=== PATIENT | male | born 1965 | race Caucasian/White ===

== ENCOUNTER 2016-02-28 09:34 | Inpatient (IN) | payer OTHER ==
--- NOTE | 2016-02-28 09:58 | PDOC ---
[id number] have performed the following: I have examined & evaluated the patient, The case was reviewed & discussed with the resident, I agree w/resident 's findings & plan - HPI HPI: 03/04/16 08:42 see below - Physicial Exam PE: 03/04/16 08:42 see below - Medical Decision Making 02/28/16 10:27 47y M no pmhx presents with abd pain, pt notes pain started gradually on saturday , in the LLQ radiating to the groin - intermittent, worsend significantly this morning associated with chills - no associated n/v, fever, dysuria, hematuria. pt does endorse diarrhea x 2, and pt has been passing gas, whichs eems to improve his pain. on exam pts vital snoted for mild hypotension. abd reveals diffuse tenderness with volutnary guarding. suspect psosible kidney stone vs diverticulitis 02/28/16 14:12 ct c/w diverticulitis admitted to dr. monroe service, and dr. solomon was consulted (surgery) stable for tele Case discussed in detail with admitting physician including history, physical exam and ancillary studies. Admitting physician has assumed care for the patient, will follow all pending diagnostics and will complete the evaluation and treatment.
[2016-02-28] MEDS ORDERED: SODIUM CHLORIDE 1,000 ML IV ONE ×2 (10:11→13:54)
[2016-02-28] MEDS ORDERED: KETOROLAC TROMETHAMINE 30 MG/1 ML VIAL IVPUSH ONE (10:22)
[2016-02-28] MEDS ORDERED: KETOROLAC TROMETHAMINE 30 MG/1 ML VIAL ONE (10:23)
--- NOTE | 2016-02-28 10:29 | PDOC ---
History of Present Illness <Gustavo Dhillon - Last Filed: 02/28/16 11:50> - General History Source: Patient Exam Limitations: No Limitations - History of Present Illness Travel History: No Initial Comments: 02/28/16 10:25 Patient is a 47 year old male with no significant PMH who presents to ED with severe abdominal pain since this AM. He started to feel a diffuse uncomfortable sensation in his abdomen starting on saturday. Discomfort was mild and accompanied by 2 episodes of diarrhea. This morning the patient had a severe increase in pain, located mainly in his LLQ, described as sharp and radiating to his testicles & perineum. He also developed chills, cold sweats and a bout of dizziness. He denies any sick contacts, [place], CP, SOB or visual changes. He had a colonoscopy 3 years ago which showed a minimal amount of diverticula. <Hilario Hutchins - Last Filed: 02/28/16 14:07> - General Chief Complaint: Pain Stated Complaint: ABD PAIN Time Seen by Provider: 02/28/16 09:48 Past History <Gustavo Dhillon - Last Filed: 02/28/16 11:50> - Travel Traveled outside of the country in the last 30 days: No Close contact w/someone who was outside of country & ill: No - Past Medical History Other medical history: denies Comment:: No PMH - Surgical History Comments:: No PSH - Family Disease History Family Disease History: Other: Father (Parkinsons) - Immunization History Immunization Up to Date: Yes (no flu) - Psycho/Social/Smoking Cessation Hx Anxiety: No Suicidal Ideation: No Smoking Status: Yes Smoking History: Current every day smoker Have you smoked in the past 12 months: Yes Number of Cigarettes Smoked Daily: 10 Information on smoking cessation initiated: No Hx Alcohol Use: No Drug/Substance Use Hx: No Substance Use Type: None <Hilario Hutchins - Last Filed: 02/28/16 14:07> - Past Medical History Allergies/Adverse Reactions: Allergies Allergy/AdvReac Type Severity Reaction Status Date / Time No Known Allergies Allergy Verified 02/28/16 09:38 Home Medications: Ambulatory Orders NK [No Known Home Medication] 02/28/16 Abd/GI Specific PMHX - Complaint Specific PMHX Comments:: Diverticula noted on colonoscopy 3 years ago. <Hilario Hutchins - Last Filed: 02/28/16 14:07> Review of Systems - Review of Systems Able to Perform ROS?: Yes Is the patient limited Nepali proficient: No Constitutional: Yes: Chills ABD/GI: Yes: Diarrhea, Other (abdominal pain) All Other Systems: Reviewed and Negative <CuongHilario vann - Last Filed: 02/28/16 14:07> *Physical Exam - Vital Signs Last Vital Signs Temp Pulse Resp BP Pulse Ox 98.1 F 92 H 20 104/53 98 02/28/16 09:39 02/28/16 10:29 02/28/16 10:29 02/28/16 10:29 02/28/16 10:29 <Gustavo Dhillon - Last Filed: 02/28/16 11:50> - Vital Signs Last Vital Signs Temp Pulse Resp BP Pulse Ox 98.1 F 82 20 96/59 100 02/28/16 09:39 02/28/16 09:39 02/28/16 09:39 02/28/16 09:39 02/28/16 09:39 - Physical Exam General Appearance: Yes: Appropriately Dressed, Apparent Distress HEENT: positive: EOMI, KAILA, Normal ENT Inspection Neck: positive: Trachea midline, Normal Thyroid, Supple Respiratory/Chest: positive: Lungs Clear, Normal Breath Sounds Cardiovascular: positive: Regular Rhythm, Regular Rate, S1, S2 Gastrointestinal/Abdominal: positive: Normal Bowel Sounds, Tender (LLQ WITH REBOUND TENDERNESS), Guarding Male Genitalia: positive: normal genitalia Musculoskeletal: positive: Normal Inspection Extremity: positive: Normal Inspection, Normal Range of Motion Integumentary: positive: Normal Color, Dry, Warm Neurologic: positive: Fully Oriented, Alert, Normal Mood/Affect, Normal Response , Motor Strength 5/5 <Cuong,Hilario - Last Filed: 02/28/16 14:07> Heart Score/ECG Review - ECG Impressions Comment:: 02/28/16 11:50 Twelve-lead EKG was performed and reviewed by me. There is normal sinus rhythm with a normal rate. Rate of 92 The axis is normal. The intervals are normal. There is normal R wave progression There are no ST or T wave abnormalities. Impression: Normal twelve-lead EKG <Gustavo Dhillon - Last Filed: 02/28/16 11:50> #1 EKG: NSR <Hilario Hucthins - Last Filed: 02/28/16 14:07> ED Treatment Course - LABORATORY CBC & Chemistry Diagram: 02/28/16 10:14 02/28/16 10:14 - ADDITIONAL ORDERS Additional order review: Laboratory Results 02/28/16 02/28/16 02/28/16 10:14 10:14 10:14 Sodium Potassium Chloride Carbon Dioxide Anion Gap BUN Creatinine Creat Clearance w eGFR Random Glucose Lactic Acid 1.172 Calcium Total Bilirubin AST ALT Alkaline Phosphatase Total Protein Albumin Lipase 136 Urine Color Chen Urine Appearance Slcloudy Urine pH 5.0 Ur Specific [place] 1.033 Urine Protein 2+ H Urine Glucose (UA) Negative Urine Ketones Trace H Urine Blood Negative Urine Nitrite Negative Urine Bilirubin 2.0 Urine Urobilinogen 4.0 e.u/dl Ur Leukocyte Esterase Negative Urine RBC 2 Urine WBC 3 Hyaline Casts 5 Urine Mucus Many 02/28/16 10:14 Sodium 139 Potassium 4.4 Chloride 103 Carbon Dioxide 30 Anion Gap 6 L BUN 19 H Creatinine 0.9 Creat Clearance w eGFR > 60 Random Glucose 157 H Lactic Acid Calcium 9.5 Total Bilirubin 0.5 AST 7 L ALT 17 Alkaline Phosphatase 60 Total Protein 7.2 Albumin 4.0 Lipase Urine Color Urine Appearance Urine pH Ur Specific [place] Urine Protein Urine Glucose (UA) Urine Ketones Urine Blood Urine Nitrite Urine Bilirubin Urine Urobilinogen Ur Leukocyte Esterase Urine RBC Urine WBC Hyaline Casts Urine Mucus 02/28/16 10:14 RBC 4.55 MCV 95.3 MCHC 33.8 RDW 12.3 MPV 7.6 Neutrophils % 87.9 H Lymphocytes % 7.5 L Monocytes % 3.7 L Eosinophils % 0.7 Basophils % 0.2 - Medications Given in the ED: ED Medications Discontinued Medications Generic Name Dose Route Start Last Admin Trade Name Freq PRN Reason Stop Dose Admin Sodium Chloride 1,000 mls @ 1,000 mls/hr 02/28/16 10:11 02/28/16 10:15 Normal Saline - IV 02/28/16 11:10 1,000 mls/hr .Q1H ONE Administration Ketorolac Tromethamine 30 mg 02/28/16 10:22 02/28/16 10:26 Toradol Injection - IVPUSH 02/28/16 10:23 30 mg ONCE ONE Administration <Jacquie,Gustavo - Last Filed: 02/28/16 11:50> - LABORATORY CBC & Chemistry Diagram: 02/28/16 10:14 02/28/16 10:14 - ADDITIONAL ORDERS Additional order review: 02/28/16 10:35 Ordered CBC, CMP, Lipase, Lactic Acid, UA. Sent blood cultures as well. 1L IVF given with Toradol for pain management. Will likely need abdominal imaging, awaiting lab results to confirm. 02/28/16 11:25 Pain much more tolerable after Toradol given. BP improved after IVF given. Mild leukocytosis. Abdomen & Pelvis CT w/ IV Contrast ordered. 02/28/16 13:49 Abdomen & Pelvis CT shows : Multiple hepatic cysts with the largest measuring 2.7 cm and partially exophytic left renal lower pole cyst measuring 2.7 cm Diverticulosis coli with acute diverticulitis in the mid sigmoid colon. Significant surrounding edema/stranding is present with a small extraluminal air pocket seen within the center of a phlegmon measuring 2.6 cm. No necrotized or drainable collection/abscess is present. Close follow- up is recommended. Patient started on Levaquin & Flagyl. Discussed with surgery & they agreed to consult on the case. Discussed with Dr Fairbanks and she will admit the patient. 02/28/16 13:58 Given 4mg Morphine for pain management. Another 1liter IVF NS ordered. <Hilario Hutchins - Last Filed: 02/28/16 14:07> *DC/Admit/Observation/Transfer <Gustavo Dhillon - Last Filed: 02/28/16 11:50> - Discharge Dispostion Admit: Yes <Hilario Hutchins - Last Filed: 02/28/16 14:07> Diagnosis at time of Disposition: Acute diverticulitis of intestine
[2016-02-28 10:40] LABS: URINE APPEARANCE SLCLOUDY; URINE BLOOD NEGATIVE (NEGATIVE); URINE COLOR AMBER; URINE GLUCOSE (UA) NEGATIVE (NEGATIVE); URINE KETONE TRACE (NEGATIVE); URINE LEUK ESTERASE NEGATIVE (NEGATIVE); URINE NITRITE NEGATIVE (NEGATIVE); URINE PROTEIN 2+ (NEGATIVE); URINE UROBILINOGEN 4.0 E.U/dl E.U./dl (0.2-1.0)
[2016-02-28 10:47] LABS: URINE HYALINE CAST 5 /lpf; URINE MUCUS MANY; URINE RBC 2 /hpf (0-3); URINE WBC 3 /hpf (3-5)
[2016-02-28 10:50] LABS: ANION GAP 6 (8-16); BILIRUBIN,TOTAL 0.5 mg/dL (0.2-1.0); CALCIUM 9.5 mg/dL (8.5-10.1); CO2 30 mmol/L (21-32); CREATININE 0.9 mg/dL (0.7-1.3); GLUCOSE,RANDOM 157 mg/dL (74-106); SGOT/AST 7 U/L (15-37); TOT PROT 7.2 g/dl (6.4-8.2)
[2016-02-28 10:54] LABS: ALK PHOS 60 U/L (45-117); SGPT/ALT 17 U/L (12-78)
[2016-02-28 11:22] LABS: BASOPHIL 0.2 % (0-2.0); EOSINOPHIL 0.7 % (0-4.5); MCH 32.2 pg (25.7-33.7); MCHC 33.8 g/dl (32.0-35.9); MEAN CELL VOLUME 95.3 fl (80-96); MEAN PLT VOLUME 7.6 fl (7.5-11.1); NEUTROPHILS 87.9 % (42.8-82.8); PLATELET COUNT 242 K/MM3 (134-434); RDW 12.3 % (11.9-15.9); WHITE BLOOD COUNT 11.7 K/mm3 (4.0-10.0)
[2016-02-28] MEDS ORDERED: LEVOFLOXACIN 750 MG IVPB 150 ML IVPB ONE (13:36)
[2016-02-28] MEDS ORDERED: METRONIDAZOLE 500 MG PREMIXED 100 ML IVPB ONE ×2 (13:36→13:47)
[2016-02-28] MEDS ORDERED: LEVOFLOXACIN 250 MG IVPB 50 ML IVPB ONE (13:48)
[2016-02-28] MEDS ORDERED: LEVOFLOXACIN 500 MG IVPB 100 ML IVPB ONE (13:48)
[2016-02-28] MEDS ORDERED: morphine CARPU-JECT 4 MG/1 ML DISP.SYRIN IVPUSH ONE (13:55)
--- NOTE | 2016-02-28 14:13 | CONSULT ---
Consultation: REQUESTING PROVIDER:General Surgery-Dr. Garcia CONSULT REQUEST: We have been asked to surgically evaluate this patient for lower abd pain. HISTORY OF PRESENT ILLNESS:The patient is a 47 yo male with a history of diverticular disease diagnosed approximately 3 years ago when he had a colonscopy for rectal bleeding. Internal hemorroids and diverticular disease where noted at the time. Currenty he c/o lower abd pain, cramping not associated with vomiting or nausea. He denies fevers. He has had similar symptoms in the past but never persistant. He hasn't received any treatment for diverticular disease. PMHX:internal hermorroids, diverticular disease PSHX: none Medications: none REVIEW OF SYSTEMS: CONSTITUTIONAL: Present: fever, chills CARDIOVASCULAR: Absent: chest pain, syncope, palpitations RESPIRATORY: Absent: cough, shortness of breath GASTROINTESTINAL: Present: abdominal pain Absent: Nausea, vomiting GENITOURINARY: Absent: dysuria, hematuria, pneumoturia MUSCULOSKELETAL: Absent: myalgia, joint swelling: Present: occasional left shoulder pain with movement HEMATOLOGIC/IMMUNOLOGIC: Absent: easy bleeding, easy bruising NEUROLOGIC: Present: h/o of migraines(non-recently) Absent:seizure PHYSICAL EXAMINATION Vital Signs Temperature 98.1 F 02/28/16 09:39 Pulse Rate 96 H 02/28/16 11:59 Respiratory Rate 20 02/28/16 11:59 Blood Pressure 97/50 02/28/16 11:59 O2 Sat by Pulse Oximetry (%) 96 02/28/16 11:59 GENERAL: Awake, alert, and fully oriented, in no acute distress. HEAD: Normal with no signs of trauma. EYES: Pupils equal, round and reactive to light, conjunctiva clear. NECK: Normal range of motion, supple without lymphadenopathy, JVD, or masses. LUNGS: Breath sounds equal, clear to auscultation bilaterally. No wheezes, and no crackles. HEART: Regular rate and rhythm, normal S1 and S2 without murmur, rub or gallop. ABDOMEN: Soft, not distended, tenderness to LLQ with palpation, no guarding or rebound. MUSCULOSKELETAL: Normal range of motion at all joints. No bony deformities or tenderness. UPPER EXTREMITIES: 2+ pulses, warm, well-perfused. No cyanosis. Cap refill <2 seconds. No peripheral edema. LOWER EXTREMITIES: 2+ pulses, warm, well-perfused. No calf tenderness. No peripheral edema. NEUROLOGICAL: Normal speech, gait not observed. PSYCH: Cooperative. Good eye contact. Appropriate mood and affect. SKIN: Warm, dry, normal turgor, no rashes or lesions noted. LABS: Laboratory Results - last 24 hr 02/28/16 02/28/16 02/28/16 10:14 10:14 10:14 WBC 11.7 H RBC 4.55 Hgb 14.6 Hct 43.3 MCV 95.3 MCHC 33.8 RDW 12.3 Plt Count 242 MPV 7.6 Neutrophils % 87.9 H Lymphocytes % 7.5 L Monocytes % 3.7 L Eosinophils % 0.7 Basophils % 0.2 Sodium 139 Potassium 4.4 Chloride 103 Carbon Dioxide 30 Anion Gap 6 L BUN 19 H Creatinine 0.9 Creat Clearance w eGFR > 60 Random Glucose 157 H Lactic Acid Calcium 9.5 Total Bilirubin 0.5 AST 7 L ALT 17 Alkaline Phosphatase 60 Total Protein 7.2 Albumin 4.0 Lipase 136 Urine Color Urine Appearance Urine pH Ur Specific [place] Urine Protein Urine Glucose (UA) Urine Ketones Urine Blood Urine Nitrite Urine Bilirubin Urine Urobilinogen Ur Leukocyte Esterase Urine RBC Urine WBC Hyaline Casts Urine Mucus 02/28/16 02/28/16 10:14 10:14 WBC RBC Hgb Hct MCV MCHC RDW Plt Count MPV Neutrophils % Lymphocytes % Monocytes % Eosinophils % Basophils % Sodium Potassium Chloride Carbon Dioxide Anion Gap BUN Creatinine Creat Clearance w eGFR Random Glucose Lactic Acid 1.172 Calcium Total Bilirubin AST ALT Alkaline Phosphatase Total Protein Albumin Lipase Urine Color Chen Urine Appearance Slcloudy Urine pH 5.0 Ur Specific [place] 1.033 Urine Protein 2+ H Urine Glucose (UA) Negative Urine Ketones Trace H Urine Blood Negative Urine Nitrite Negative Urine Bilirubin 2.0 Urine Urobilinogen 4.0 e.u/dl Ur Leukocyte Esterase Negative Urine RBC 2 Urine WBC 3 Hyaline Casts 5 Urine Mucus Many Laboratory Tests 02/28/16 10:[address]-sigmoid inflammation with masslike density 2.6cm in size with localized air c /w phlegmon, no abscess or drainable collection Problem List - Problems (1) Diverticulitis large intestine w/o perforation or abscess w/o bleeding Assessment/Plan: Pt with localized mass/phlegmon of the sigmoid colon. No drainable abscess. He remains clinically stable, afebrile, localized abdominal tenderness. Recommend to continue npo/IV hydration/ pain medications as needed IV abx with Levaquin/flagyl in the ER Pt seen with Dr. Garcia(general surgery) will continue to follow the patient closely. He should remain NPO until abd pain resolving, afebrile and improved wbc. He will most likely need repeat CT scan at a later time. am labs ordered cbc/chem Code(s): K57.32 - DVTRCLI OF LG INT W/O PERFORATION OR ABSCESS W/O BLEEDING Visit type - Case Type Case Type: ED Admission - Emergency Emergency Visit: Yes ED Registration Date: 02/28/16 Care time: The patient presented to the Emergency Department on the above date and was hospitalized for further evaluation of their emergent condition. - New patient This patient is new to me today: Yes Date on this admission: 02/28/16 - Critical Care Critical Care patient: No
[2016-02-28] MEDS ORDERED: morphine CARPU-JECT 4 MG/1 ML DISP.SYRIN ONE (14:17)
--- NOTE | 2016-02-28 16:12 | EKG ---
Test Reason : Blood Pressure : / mmHG Vent. Rate : 092 BPM Atrial Rate : 092 BPM P-R Int : 182 ms QRS Dur : 068 ms QT Int : 342 ms P-R-T Axes : 062 064 049 degrees QTc Int : 422 ms NORMAL SINUS RHYTHM NORMAL ECG NO PREVIOUS ECGS AVAILABLE Confirmed by ALEXANDRA MISHRA MD ([id number]) on 02/28/2016 4:12:29 PM Referred By: Confirmed By:ALEXANDRA MISHRA MD
[2016-02-28 17:57] VITALS: BMI 21.1
[2016-02-28] MEDS ORDERED: morphine CARPU-JECT 4 MG/1 ML DISP.SYRIN IVPUSH PRN (20:55)
[2016-02-28] MEDS ORDERED: ONDANSETRON 4 MG/2 ML VIAL IVPB PRN (20:56)
--- NOTE | 2016-02-28 21:12 | HP ---
Admitting History and Physical - Admission Chief Complaint: Abdominal pain History of Present Illness: Pt is a 50 y/o male w/ no significant PMH who presentyed to the ER bc of a 5 day h/o abdominal pain wc was localized. However this am pain more intense (10/ 10) and was more localized to LLQ. During these past few days pt has had 2 episodes of diarrhea: however, he denies any fever/chills. In the ER pt found to be hypotensive w/ a BP of 97/50 and tmax of 100.1. Pt also had ct scan abd/ pelvis wc showed acute sigmoid diverticulitis w/extraluminal air pocket w/in center of phlegmon. Pt's WBC was slightly elevated at >11,000. History Source: Patient - Past Surgical History Past Surgical History: Yes: None - Smoking History Smoking history: Current every day smoker Have you smoked in the past 12 months: Yes Aproximately how many cigarettes per day: 10 - Alcohol/Substance Use Hx Alcohol Use: No Home Medications - Allergies Allergies/Adverse Reactions: Allergies Allergy/AdvReac Type Severity Reaction Status Date / Time No Known Allergies Allergy Verified 02/28/16 09:38 - Home Medications Home Medications: Ambulatory Orders NK [No Known Home Medication] 02/28/16 Family Disease History - Family Disease History Family History: Unremarkable Review of Systems - Review of Systems Constitutional: reports: No Symptoms HENT: reports: No Symptoms Neck: reports: No Symptoms Cardiovascular: reports: No Symptoms Respiratory: reports: No Symptoms Gastrointestinal: reports: Abdominal Pain, Diarrhea Genitourinary: reports: No Symptoms Musculoskeletal: reports: No Symptoms Neurological: reports: No Symptoms Physical Examination Vital Signs: Vital Signs Temperature 100.1 F H 02/28/16 17:57 Pulse Rate 100 H 02/28/16 17:57 Respiratory Rate 20 02/28/16 17:57 Blood Pressure 113/67 02/28/16 17:57 O2 Sat by Pulse Oximetry (%) 96 02/28/16 17:57 Constitutional: Yes: Calm HENT: Yes: WNL Neck: Yes: Supple Cardiovascular: Yes: WNL, Regular Rate and Rhythm Respiratory: Yes: WNL, Regular, CTA Bilaterally Gastrointestinal: Yes: Normal Bowel Sounds, Other ((+) tenderness on palpation LLQ w/ minimal rebound but no guarding) Musculoskeletal: Yes: WNL Extremities: Yes: WNL Edema: No Neurological: Yes: WNL, Alert, Oriented ...Motor Strength: WNL Problem List - Problems (1) Diverticulitis large intestine w/o perforation or abscess w/o bleeding Assessment/Plan: Acute diverticulitis w/ phlegmon Cont IVF/NPO Cont IV levaquin/flagyl Surgical/GI consults Code(s): K57.32 - DVTRCLI OF LG INT W/O PERFORATION OR ABSCESS W/O BLEEDING (2) Acute diverticulitis Code(s): K57.92 - DVTRCLI OF INTEST, PART UNSP, W/O PERF OR ABSCESS W/O BLEED
[2016-02-28] MEDS: DEXTROSE 5%-0.45% SALINE 1,000 ML IV SCH (21:24)
[2016-02-28] MEDS: METRONIDAZOLE 500 MG PREMIXED 100 ML IVPB SCH (21:24)
[2016-02-29] MEDS: METRONIDAZOLE 500 MG PREMIXED 100 ML IVPB SCH (01:58)
[2016-02-29 07:35] LABS: BASOPHIL 0.2 % (0-2.0); EOSINOPHIL 0.9 % (0-4.5); MCH 32.4 pg (25.7-33.7); MCHC 34.3 g/dl (32.0-35.9); MEAN CELL VOLUME 94.6 fl (80-96); MEAN PLT VOLUME 7.2 fl (7.5-11.1); NEUTROPHILS 78.3 % (42.8-82.8); PLATELET COUNT 175 K/MM3 (134-434); RDW 12.3 % (11.9-15.9); WHITE BLOOD COUNT 7.6 K/mm3 (4.0-10.0)
[2016-02-29 07:59] LABS: CALCIUM 8.1 mg/dL (8.5-10.1)
[2016-02-29 08:02] LABS: CREATININE 0.9 mg/dL (0.7-1.3)
--- NOTE | 2016-02-29 08:25 | PN ---
Progress Note, Physician Chief Complaint: ID Full note dictated - Current Medication List Current Medications: Active Medications Enoxaparin Sodium (Lovenox -) 40 mg SQ DAILY [facility] Dextrose/Sodium Chloride (D5-1/2ns -) 1,000 mls @ 100 mls/hr IV ASDIR RONY Last Admin: 02/28/16 21:24 Dose: 100 mls/hr Metronidazole (Flagyl 500mg Premixed Ivpb -) 100 mls @ 100 mls/hr IVPB Q8H-IV RONY Last Admin: 02/29/16 01:58 Dose: 100 mls/hr Levofloxacin (Levaquin 500 Mg Premixed Ivpb -) 100 mls @ 100 mls/hr IVPB DAILY RONY Morphine Sulfate (Morphine Injection -) 4 mg IVPUSH Q6H PRN PRN Reason: PAIN Last Admin: 02/28/16 21:57 Dose: 4 mg Ondansetron HCl (Zofran Injection) 4 mg IVPB Q8H PRN PRN Reason: NAUSEA - Objective Vital Signs: Vital Signs Temperature 99.1 F 02/29/16 04:56 Pulse Rate 80 02/29/16 04:56 Respiratory Rate 20 02/29/16 04:56 Blood Pressure 102/59 02/29/16 04:56 O2 Sat by Pulse Oximetry (%) 96 02/28/16 17:57 Gastrointestinal: Yes: Soft, Other (Diffuse tenderness no rebound) Labs: CBC, BMP 02/29/16 05:35 02/29/16 05:35 Problem List - Problems (1) Acute diverticulitis Code(s): K57.92 - DVTRCLI OF INTEST, PART UNSP, W/O PERF OR ABSCESS W/O BLEED (2) Diverticulitis large intestine w/o perforation or abscess w/o bleeding Code(s): K57.32 - DVTRCLI OF LG INT W/O PERFORATION OR ABSCESS W/O BLEEDING Assessment/Plan Microbiology Laboratory Tests 02/28/16 02/29/16 02/29/16 10:14 05:35 05:35 WBC 11.7 H 7.6 D Hgb 12.2 D Hct 35.5 D Plt Count 175 D BUN 9 D Creatinine 0.9 Acute diverticulitis with perforation Plan NPO and Zosyn 4.5 q8H GI antonella Enrique MD
--- NOTE | 2016-02-29 08:39 | PN ---
Progress Note (short form) - Note Progress Note: 50 yo male admitted yesterday with abd pain 10/21. A CT scan identified sigmoid inflammation with mass-like density 2.6cm in size with localized air c/w phlegmon, no abscess or drainable collection. This morning, patient laying in bed. Still c/o abd pain but states it is about a 5/10. He is on IV pain management and IV ABX. Informs me that he passed flatus last night as well as having a bowel movement. Voiding spontaneously. Denies n/v/f/c, CP or SOB. ID note appreciated. Last Vital Signs Temp Pulse Resp BP Pulse Ox 99.1 F 80 20 102/59 96 02/29/16 04:56 02/29/16 04:56 02/29/16 04:56 02/29/16 04:56 02/28/16 17:57 CBC, BMP 02/29/16 05:35 02/29/16 05:35 PE General: alert. nad Pulm: cta b/l anteriorly Cor: rrr Abd: Soft. ND. LLQ ttp. No guarding or rebound. Problem List - Problems (1) Acute diverticulitis Assessment/Plan: npo / ivf gi / dvt ppx iv abx Serial abd exams cbc, bmp in AM oob and ambulate as tolerated Surgery Team to continue following Code(s): K57.92 - DVTRCLI OF INTEST, PART UNSP, W/O PERF OR ABSCESS W/O BLEED
--- NOTE | 2016-02-29 08:50 | CONS ---
INFECTIOUS DISEASE CONSULTATION DATE OF CONSULTATION: DATE OF DICTATION: 02/29/2016 This is a 50-year-old [facility] male admitted with a 4-5 day history of severe, intermittent abdominal pain, mostly in his left lower quadrant, associated with chills and nonbloody diarrhea. He has a history of similar bouts of abdominal pain with diarrhea in the past for several years, noting that he has never been medically evaluated for this nor admitted. Here, he had low-grade temperature with an elevated white count and was empirically placed on levofloxacin and metronidazole per his primary doctor. Today, he feels better, noting that he continues, however, to have abdominal pain. A CAT scan of the abdomen was consistent with sigmoid diverticula, suggesting possible perforation but no discrete abscess. PAST MEDICAL HISTORY: Negative for hypertension, diabetes. Prior history of abdominal pain, possible diverticulitis. CURRENT MEDICATIONS AT HOME: None. ALLERGIES: None known. SOCIAL HISTORY: Lives with his children locally, works in [place], has his own real estate firm, renting residential real estate. Nonsmoker. No travel. Occasional alcohol use. FAMILY HISTORY: Reviewed and noncontributory. REVIEW OF SYSTEMS: Respiratory: No cough, shortness of breath. Cardiac: No chest pain, palpitations. Gastrointestinal: Abdominal pain with diarrhea as noted. No vomiting, blood per rectum. Genitourinary: No dysuria, hematuria. PHYSICAL EXAMINATION: General: He was a pleasant, alert male in no acute distress. Vital Signs: His temperature maximum was 100.1, blood pressure 102/59, respirations 20, pulse 80. Neck: Supple. No adenopathy. Lungs: Clear to P&A. Heart: S1, S2. Regular rhythm. No murmur. Abdomen: Soft. Positive bowel sounds. Diffuse tenderness mostly across the lower abdomen. No guarding or rebound. Extremities: Without edema. The white count was 11.7, hemoglobin 14.6, platelets 242. BUN 9, creatinine 0.9. Urinalysis with 2 RBCs, 3 WBCs. Two sets of blood cultures currently pending. CT of the abdomen was reviewed and consistent with diverticulosis with acute diverticulitis, mid-sigmoid colon; surrounding edema and stranding with small extraluminal air pockets seen, suggesting phlegmon. No necrotic or drainable abscess was noted; however, multiple hepatic cysts seen. ASSESSMENT: A 50-year-old male who presents with abdominal pain, fever, chills, and diarrhea. Computerized tomography findings consistent with acute diverticulitis of the sigmoid colon with phlegmon but no drainable abscess. PLAN: GI consultation and surgical consultation. Continue piperacillin/tazobactam 4.5 g IV q.8 hours. Obtain a CRP to help monitor response to treatment. Keep n.p.o. ALLY ASHTON M.D. CLINT/[id number]
[2016-02-29 09:08] LABS: C-REACTIVE PROTEIN 12.3 MG/DL (0.00-0.3)
[2016-02-29] MEDS: ENOXAPARIN NA (PORCINE) 40 MG/0.4 ML DISP.SYRIN SQ SCH (09:48)
[2016-02-29] MEDS: PIPERACILLIN/TAZOB 4.5 GM 100 ML IVPB SCH ×2 (09:48→18:41)
[2016-02-29] MEDS ORDERED: LEVOFLOXACIN 500 MG IVPB 100 ML IVPB SCH (10:00)
[2016-02-29] MEDS: ACETAMINOPHEN 650 MG/20.3 ML ORAL SOLUTION (CUPS) PO PRN ×2 (14:23→21:41)
[2016-02-29] MEDS ORDERED: PT OWN MED DRAWER 7, Y5N ONE (17:23)
--- NOTE | 2016-02-29 21:07 | PN ---
Progress Note, Physician - Current Medication List Current Medications: Active Medications Acetaminophen (Tylenol Oral Solution -) 650 mg PO Q4H PRN PRN Reason: FEVER OR PAIN Last Admin: 02/29/16 14:23 Dose: 650 mg Enoxaparin Sodium (Lovenox -) 40 mg SQ DAILY RONY Last Admin: 02/29/16 09:48 Dose: Not Given Dextrose/Sodium Chloride (D5-1/2ns -) 1,000 mls @ 100 mls/hr IV ASDIR RONY Last Admin: 02/28/16 21:24 Dose: 100 mls/hr Piperacillin Sod/Tazobactam Sod (Zosyn 4.5gm Ivpb (Pre-Docked)) 100 mls @ 200 mls/hr IVPB Q8H-IV RONY Last Admin: 02/29/16 18:41 Dose: 200 mls/hr Morphine Sulfate (Morphine Injection -) 4 mg IVPUSH Q6H PRN PRN Reason: PAIN Last Admin: 02/28/16 21:57 Dose: 4 mg Ondansetron HCl (Zofran Injection) 4 mg IVPB Q8H PRN PRN Reason: NAUSEA - Objective Vital Signs: Vital Signs Temperature 98.7 F 02/29/16 18:00 Pulse Rate 80 02/29/16 18:00 Respiratory Rate 20 02/29/16 18:00 Blood Pressure 111/58 02/29/16 18:00 O2 Sat by Pulse Oximetry (%) 96 02/29/16 10:00 Labs: CBC, BMP 02/29/16 05:35 02/29/16 05:35 Problem List - Problems (1) Diverticulitis large intestine w/o perforation or abscess w/o bleeding Code(s): K57.32 - DVTRCLI OF LG INT W/O PERFORATION OR ABSCESS W/O BLEEDING (2) Acute diverticulitis Code(s): K57.92 - DVTRCLI OF INTEST, PART UNSP, W/O PERF OR ABSCESS W/O BLEED
[2016-02-29] MEDS: DEXTROSE 5%-0.45% SALINE 1,000 ML IV SCH (21:43)
--- NOTE | 2016-03-01 00:05 | CONSULT ---
Consult Consult Specialty:: GI Referred by:: Dr Fairbanks Reason for Consultation:: diverticulitis - History of Present Illness Chief Complaint: abdominal pain History of Present Illness: 50 M with no PMH admitted with 1 week of abdominal pain that got progressively worse until day of admission when described as 11/20, primarily LLQ. On admission patient was hypotensive, febrile and had a CT showing complicated diverticulitis with extraluminal air in a phlegmon adjacent to the colon. Mild leukocytosis. - Past Surgical History Past Surgical History: Yes: None - Alcohol/Substance Use Hx Alcohol Use: No - Smoking History Smoking history: Current every day smoker Have you smoked in the past 12 months: Yes Aproximately how many cigarettes per day: 10 Home Medications - Allergies Allergies/Adverse Reactions: Allergies Allergy/AdvReac Type Severity Reaction Status Date / Time No Known Allergies Allergy Verified 02/28/16 09:38 - Home Medications Home Medications: Ambulatory Orders NK [No Known Home Medication] 02/28/16 Physical Exam-GI Vital Signs: Vital Signs Temperature 98.7 F 02/29/16 18:00 Pulse Rate 80 02/29/16 18:00 Respiratory Rate 20 02/29/16 18:00 Blood Pressure 111/58 02/29/16 18:00 O2 Sat by Pulse Oximetry (%) 96 02/29/16 10:00 Labs: CBC, BMP 02/29/16 05:35 02/29/16 05:35 Imaging - Results Cat Scan: Report Reviewed (As described) Assessment/Plan On appropriate AbRx ID on case chart reviewed Remainder of consult in am
[2016-03-01] MEDS: PIPERACILLIN/TAZOB 4.5 GM 100 ML IVPB SCH ×3 (02:04→18:34)
[2016-03-01] MEDS: DEXTROSE 5%-0.45% SALINE 1,000 ML IV SCH ×3 (06:57→21:55)
[2016-03-01 07:19] LABS: BASOPHIL 0.2 % (0-2.0); EOSINOPHIL 0.7 % (0-4.5); MCH 32.3 pg (25.7-33.7); MCHC 34.4 g/dl (32.0-35.9); MEAN CELL VOLUME 93.9 fl (80-96); MEAN PLT VOLUME 7.2 fl (7.5-11.1); NEUTROPHILS 79.6 % (42.8-82.8); PLATELET COUNT 222 K/MM3 (134-434); RDW 12.5 % (11.9-15.9); WHITE BLOOD COUNT 8.3 K/mm3 (4.0-10.0)
[2016-03-01 07:31] LABS: ALBUMIN 3.1 g/dl (3.4-5.0); ANION GAP 6 (8-16); CO2 29 mmol/L (21-32); GLUCOSE,RANDOM 121 mg/dL (74-106)
[2016-03-01 07:34] LABS: ALK PHOS 50 U/L (45-117); BILIRUBIN,TOTAL 0.9 mg/dL (0.2-1.0); CREATININE 0.9 mg/dL (0.7-1.3); SGOT/AST 5 U/L (15-37); SGPT/ALT 11 U/L (12-78); TOT PROT 6.1 g/dl (6.4-8.2)
--- NOTE | 2016-03-01 09:01 | PN ---
GI Progress Note Subjective: Feeling much better this AM Less pain, had BM. Temp spike to 101 last night - Objective Vital Signs: Vital Signs Temperature 99.8 F H 03/01/16 05:24 Pulse Rate 83 03/01/16 05:24 Respiratory Rate 20 03/01/16 05:24 Blood Pressure 107/54 03/01/16 05:24 O2 Sat by Pulse Oximetry (%) 98 02/29/16 21:00 Constitutional: Well Nourished, Calm HENT: Yes: Normocephalic Neck: Yes: Supple Cardiovascular: Yes: Regular Rate and Rhythm Respiratory: Yes: CTA Bilaterally Gastrointestinal Inspection: Yes: WNL ...Auscultate: Yes: Normoactive Bowel Sounds ...Palpate: Yes: Soft, Tenderness (LLQ) Labs: CBC, BMP 03/01/16 06:00 03/01/16 06:00 Hepatic Panel Total Bilirubin 0.9 mg/dL (0.2-1.0) D 03/01/16 06:00 AST 5 U/L (15-37) L D 03/01/16 06:00 ALT 11 U/L (12-78) L D 03/01/16 06:00 Alkaline Phosphatase 50 U/L (45-117) 03/01/16 06:00 Albumin 3.1 g/dl (3.4-5.0) L D 03/01/16 06:00 - ....Imaging Cat Scan: Report Reviewed (As noted, contained perforation) Assessment/Plan Temp spike last night to 101 Will broaden coverage Repeat CT tomorrow Clear liquids Will need outpatient colonoscopy in 8 weeks
--- NOTE | 2016-03-01 10:14 | PN ---
Progress Note, Physician Chief Complaint: ID Feeling much better today Zosyn and metronidazole added - Current Medication List Current Medications: Active Medications Acetaminophen (Tylenol Oral Solution -) 650 mg PO Q4H PRN PRN Reason: FEVER OR PAIN Last Admin: 02/29/16 21:41 Dose: 650 mg Enoxaparin Sodium (Lovenox -) 40 mg SQ DAILY RONY Last Admin: 02/29/16 09:48 Dose: Not Given Dextrose/Sodium Chloride (D5-1/2ns -) 1,000 mls @ 100 mls/hr IV ASDIR RONY Last Admin: 03/01/16 06:57 Dose: 100 mls/hr Piperacillin Sod/Tazobactam Sod (Zosyn 4.5gm Ivpb (Pre-Docked)) 100 mls @ 200 mls/hr IVPB Q8H-IV RONY Last Admin: 03/01/16 02:04 Dose: 200 mls/hr Metronidazole (Flagyl 500mg Premixed Ivpb -) 100 mls @ 100 mls/hr IVPB Q6H-IV RONY Morphine Sulfate (Morphine Injection -) 4 mg IVPUSH Q6H PRN PRN Reason: PAIN Last Admin: 02/28/16 21:57 Dose: 4 mg Ondansetron HCl (Zofran Injection) 4 mg IVPB Q8H PRN PRN Reason: NAUSEA - Objective Vital Signs: Vital Signs Temperature 99.8 F H 03/01/16 05:24 Pulse Rate 83 03/01/16 05:24 Respiratory Rate 20 03/01/16 05:24 Blood Pressure 107/54 03/01/16 05:24 O2 Sat by Pulse Oximetry (%) 98 02/29/16 21:00 Constitutional: Yes: Well Nourished, No Distress Eyes: Yes: WNL, Conjunctiva Clear HENT: Yes: WNL, Atraumatic Neck: Yes: WNL, Supple Cardiovascular: Yes: Regular Rate and Rhythm, S1, S2. No: Murmur Respiratory: Yes: WNL, Regular, CTA Bilaterally Gastrointestinal: Yes: Soft, Tenderness, Other (Tenderness less LLQ mostly) Labs: CBC, BMP 03/01/16 06:00 03/01/16 06:00 Problem List - Problems (1) Acute diverticulitis Code(s): K57.92 - DVTRCLI OF INTEST, PART UNSP, W/O PERF OR ABSCESS W/O BLEED (2) Diverticulitis large intestine w/o perforation or abscess w/o bleeding Code(s): K57.32 - DVTRCLI OF LG INT W/O PERFORATION OR ABSCESS W/O BLEEDING Assessment/Plan Microbiology 02/28/16 10:14 Blood - Peripheral Venous Blood Culture - Preliminary NO GROWTH OBTAINED AFTER 24 HOURS, INCUBATION TO CONTINUE FOR 4 DAYS. 02/28/16 10:14 Blood - Peripheral Venous Blood Culture - Preliminary NO GROWTH OBTAINED AFTER 24 HOURS, INCUBATION TO CONTINUE FOR 4 DAYS. Laboratory Tests 02/29/16 03/01/16 05:35 06:00 WBC 8.3 Plt Count 222 D C-Reactive Protein 12.3 H Assessment Acute Diverticulitis improving today Plan Advance diet as per GI/ Continue antibiotics Iva SPAIN
[2016-03-01] MEDS: METRONIDAZOLE 500 MG PREMIXED 100 ML IVPB SCH ×3 (12:21→21:55)
[2016-03-01] MEDS: ENOXAPARIN NA (PORCINE) 40 MG/0.4 ML DISP.SYRIN SQ SCH (12:22)
--- NOTE | 2016-03-01 12:51 | PN ---
Physical Exam: SUBJECTIVE: Patient seen and examined; had BM; tolerating liquids. OBJECTIVE: Vital Signs Temperature 98.5 F 03/01/16 09:00 Pulse Rate 86 03/01/16 09:00 Respiratory Rate 18 03/01/16 09:00 Blood Pressure 108/58 03/01/16 09:00 O2 Sat by Pulse Oximetry (%) 98 02/29/16 21:00 GENERAL: The patient is awake, alert, and fully oriented, in no acute distress. ABDOMEN: Soft, nontender, nondistended, normoactive bowel sounds, no guarding, no rebound, no hepatosplenomegaly, no masses. PSYCH: Normal mood, normal affect. Laboratory Results - last 24 hr 03/01/16 03/01/16 06:00 06:00 WBC 8.3 RBC 4.08 Hgb 13.2 Hct 38.3 MCV 93.9 MCHC 34.4 RDW 12.5 Plt Count 222 D MPV 7.2 L Neutrophils % 79.6 Lymphocytes % 12.1 Monocytes % 7.4 Eosinophils % 0.7 Basophils % 0.2 Sodium 139 Potassium 3.8 Chloride 104 Carbon Dioxide 29 Anion Gap 6 L BUN 6 L D Creatinine 0.9 Creat Clearance w eGFR > 60 Random Glucose 121 H Calcium 8.0 L Total Bilirubin 0.9 D AST 5 L D ALT 11 L D Alkaline Phosphatase 50 Total Protein 6.1 L Albumin 3.1 L D Active Medications Generic Name Dose Route Start Last Admin Trade Name Freq PRN Reason Stop Dose Admin Acetaminophen 650 mg 02/29/16 12:58 02/29/16 21:41 Tylenol Oral Solution - PO 650 mg Q4H PRN Administration FEVER OR PAIN Enoxaparin Sodium 40 mg 02/29/16 10:00 03/01/16 12:22 Lovenox - SQ Not Given DAILY RONY Dextrose/Sodium Chloride 1,000 mls @ 100 mls/hr 02/28/16 21:00 03/01/16 06:57 D5-1/2ns - IV 100 mls/hr ASDIR RONY Administration Piperacillin Sod/Tazobactam Sod 100 mls @ 200 mls/hr 02/29/16 10:00 03/01/16 12 :21 Zosyn 4.5gm Ivpb (Pre-Docked) IVPB 200 mls/hr Q8H-IV RONY Administration Metronidazole 100 mls @ 100 mls/hr 03/01/16 09:00 03/01/16 12:21 Flagyl 500mg Premixed Ivpb - IVPB 100 mls/hr Q6H-IV RONY Administration Morphine Sulfate 4 mg 02/28/16 20:55 02/28/16 21:57 Morphine Injection - IVPUSH 4 mg Q6H PRN Administration PAIN Ondansetron HCl 4 mg 02/28/16 20:56 Zofran Injection IVPB Q8H PRN NAUSEA ASSESSMENT/PLAN: acute diverticulitis Continue present tx; f/u CT scan a/p 03/02/16 Will f/u A/A/U by the patient. Jameel Garcia MD FACS Visit type - Case Type Case Type: ED Admission - Emergency Emergency Visit: Yes ED Registration Date: 02/28/16 Care time: The patient presented to the Emergency Department on the above date and was hospitalized for further evaluation of their emergent condition. - New patient This patient is new to me today: No - Critical Care Critical Care patient: No
--- NOTE | 2016-03-01 23:08 | PN ---
Progress Note, Physician History of Present Illness: Pt had temp of 99.9 today - Current Medication List Current Medications: Active Medications Acetaminophen (Tylenol Oral Solution -) 650 mg PO Q4H PRN PRN Reason: FEVER OR PAIN Last Admin: 02/29/16 21:41 Dose: 650 mg Enoxaparin Sodium (Lovenox -) 40 mg SQ DAILY [facility] Last Admin: 03/01/16 12:22 Dose: Not Given Dextrose/Sodium Chloride (D5-1/2ns -) 1,000 mls @ 100 mls/hr IV ASDIR RONY Last Admin: 03/01/16 21:55 Dose: 100 mls/hr Piperacillin Sod/Tazobactam Sod (Zosyn 4.5gm Ivpb (Pre-Docked)) 100 mls @ 200 mls/hr IVPB Q8H-IV RONY Last Admin: 03/01/16 18:34 Dose: 200 mls/hr Metronidazole (Flagyl 500mg Premixed Ivpb -) 100 mls @ 100 mls/hr IVPB Q6H-IV RONY Last Admin: 03/01/16 21:55 Dose: 100 mls/hr Morphine Sulfate (Morphine Injection -) 4 mg IVPUSH Q6H PRN PRN Reason: PAIN Last Admin: 02/28/16 21:57 Dose: 4 mg Ondansetron HCl (Zofran Injection) 4 mg IVPB Q8H PRN PRN Reason: NAUSEA - Objective Vital Signs: Vital Signs Temperature 98.7 F 03/01/16 17:50 Pulse Rate 73 03/01/16 17:50 Respiratory Rate 18 03/01/16 17:50 Blood Pressure 99/58 03/01/16 17:50 O2 Sat by Pulse Oximetry (%) 98 03/01/16 15:00 Constitutional: Yes: No Distress Neck: Yes: Supple Cardiovascular: Yes: WNL, Regular Rate and Rhythm Respiratory: Yes: WNL, Regular, CTA Bilaterally Gastrointestinal: Yes: Other ((+) minimal tenderness LLQ (-) guarding/rebound) Labs: CBC, BMP 03/01/16 06:00 03/01/16 06:00 Problem List - Problems (1) Diverticulitis large intestine w/o perforation or abscess w/o bleeding Assessment/Plan: Acute diverticulitis w/ phlegmon Cont IVF Pt is now on IV zosyn/levaquin Check ct scan abd/pelvis Follow labs As per GI/surgery Code(s): K57.32 - DVTRCLI OF LG INT W/O PERFORATION OR ABSCESS W/O BLEEDING
[2016-03-02] MEDS: PIPERACILLIN/TAZOB 4.5 GM 100 ML IVPB SCH ×3 (01:40→17:53)
[2016-03-02] MEDS: METRONIDAZOLE 500 MG PREMIXED 100 ML IVPB SCH ×4 (03:48→22:02)
[2016-03-02 08:01] LABS: BASOPHIL 0.5 % (0-2.0); EOSINOPHIL 2.1 % (0-4.5); MCH 32.4 pg (25.7-33.7); MCHC 34.3 g/dl (32.0-35.9); MEAN CELL VOLUME 94.3 fl (80-96); NEUTROPHILS 69.7 % (42.8-82.8); PLATELET COUNT 227 K/MM3 (134-434); RDW 12.3 % (11.9-15.9); WHITE BLOOD COUNT 7.1 K/mm3 (4.0-10.0)
[2016-03-02 08:26] LABS: ALBUMIN 3.1 g/dl (3.4-5.0); ALK PHOS 46 U/L (45-117); ANION GAP 8 (8-16); BILIRUBIN,TOTAL 0.7 mg/dL (0.2-1.0); CALCIUM 8.4 mg/dL (8.5-10.1); CO2 29 mmol/L (21-32); CREATININE 0.9 mg/dL (0.7-1.3); GLUCOSE,RANDOM 111 mg/dL (74-106); SGPT/ALT 11 U/L (12-78); TOT PROT 6.1 g/dl (6.4-8.2)
[2016-03-02 08:29] LABS: SGOT/AST 4 U/L (15-37)
[2016-03-02] MEDS: ENOXAPARIN NA (PORCINE) 40 MG/0.4 ML DISP.SYRIN SQ SCH (09:35)
--- NOTE | 2016-03-02 13:13 | PN ---
Progress Note, Physician Chief Complaint: ID Improving daily able to tolerate liquids Still on IV fluids Zosyn and metronidazole - Current Medication List Current Medications: Active Medications Acetaminophen (Tylenol Oral Solution -) 650 mg PO Q4H PRN PRN Reason: FEVER OR PAIN Last Admin: 02/29/16 21:41 Dose: 650 mg Enoxaparin Sodium (Lovenox -) 40 mg SQ DAILY RONY Last Admin: 03/02/16 09:35 Dose: Not Given Dextrose/Sodium Chloride (D5-1/2ns -) 1,000 mls @ 100 mls/hr IV ASDIR RONY Last Admin: 03/01/16 21:55 Dose: 100 mls/hr Piperacillin Sod/Tazobactam Sod (Zosyn 4.5gm Ivpb (Pre-Docked)) 100 mls @ 200 mls/hr IVPB Q8H-IV RONY Last Admin: 03/02/16 10:55 Dose: 200 mls/hr Metronidazole (Flagyl 500mg Premixed Ivpb -) 100 mls @ 100 mls/hr IVPB Q6H-IV RONY Last Admin: 03/02/16 09:34 Dose: 100 mls/hr Morphine Sulfate (Morphine Injection -) 4 mg IVPUSH Q6H PRN PRN Reason: PAIN Last Admin: 02/28/16 21:57 Dose: 4 mg Ondansetron HCl (Zofran Injection) 4 mg IVPB Q8H PRN PRN Reason: NAUSEA - Objective Vital Signs: Vital Signs Temperature 98.3 F 03/02/16 09:00 Pulse Rate 71 03/02/16 09:00 Respiratory Rate 18 03/02/16 09:00 Blood Pressure 93/56 03/02/16 09:00 O2 Sat by Pulse Oximetry (%) 98 03/02/16 09:00 Constitutional: Yes: Well Nourished, No Distress Gastrointestinal: Yes: Soft, Other (Diminished tenderness) Labs: CBC, BMP 03/02/16 06:25 03/02/16 06:25 Problem List - Problems (1) Acute diverticulitis Code(s): K57.92 - DVTRCLI OF INTEST, PART UNSP, W/O PERF OR ABSCESS W/O BLEED (2) Diverticulitis large intestine w/o perforation or abscess w/o bleeding Code(s): K57.32 - DVTRCLI OF LG INT W/O PERFORATION OR ABSCESS W/O BLEEDING Assessment/Plan Laboratory Tests 02/29/16 03/02/16 05:35 06:25 WBC 7.1 Hgb 13.0 Plt Count 227 C-Reactive Protein 12.3 H Diverticulitis improving Examined with general surgery Plan Stop IV fluids Conintue Zosyn Repeat the CT scan and Repeat CRP Not less then 7 days of IV therapy Iva SPAIN
--- NOTE | 2016-03-02 13:29 | PN ---
Physical Exam: SUBJECTIVE: Patient seen and examined; no c/o; feeling better; tolerating liquids; seen w/ Dr. Iva I OBJECTIVE: Vital Signs Temperature 98.3 F 03/02/16 09:00 Pulse Rate 71 03/02/16 09:00 Respiratory Rate 18 03/02/16 09:00 Blood Pressure 93/56 03/02/16 09:00 O2 Sat by Pulse Oximetry (%) 98 03/02/16 09:00 GENERAL: The patient is awake, alert, and fully oriented, in no acute distress. ABDOMEN: Soft, nontender, nondistended, normoactive bowel sounds, no guarding, no rebound, no hepatosplenomegaly, no masses. SKIN: Warm, dry, normal turgor, no rashes or lesions noted Laboratory Results - last 24 hr 03/02/16 03/02/16 06:25 06:25 WBC 7.1 RBC 4.03 Hgb 13.0 Hct 38.0 MCV 94.3 MCHC 34.3 RDW 12.3 Plt Count 227 MPV 7.0 L Neutrophils % 69.7 Lymphocytes % 18.9 D Monocytes % 8.8 Eosinophils % 2.1 D Basophils % 0.5 Sodium 139 Potassium 3.6 Chloride 102 Carbon Dioxide 29 Anion Gap 8 BUN 6 L Creatinine 0.9 Creat Clearance w eGFR > 60 Random Glucose 111 H Calcium 8.4 L Total Bilirubin 0.7 D AST 4 L ALT 11 L Alkaline Phosphatase 46 Total Protein 6.1 L Albumin 3.1 L Active Medications Generic Name Dose Route Start Last Admin Trade Name Freq PRN Reason Stop Dose Admin Acetaminophen 650 mg 02/29/16 12:58 02/29/16 21:41 Tylenol Oral Solution - PO 650 mg Q4H PRN Administration FEVER OR PAIN Enoxaparin Sodium 40 mg 02/29/16 10:00 03/02/16 09:35 Lovenox - SQ Not Given DAILY RONY Piperacillin Sod/Tazobactam Sod 100 mls @ 200 mls/hr 02/29/16 10:00 03/02/16 10 :55 Zosyn 4.5gm Ivpb (Pre-Docked) IVPB 200 mls/hr Q8H-IV RONY Administration Metronidazole 100 mls @ 100 mls/hr 03/01/16 09:00 03/02/16 09:34 Flagyl 500mg Premixed Ivpb - IVPB 100 mls/hr Q6H-IV RONY Administration Morphine Sulfate 4 mg 02/28/16 20:55 02/28/16 21:57 Morphine Injection - IVPUSH 4 mg Q6H PRN Administration PAIN Ondansetron HCl 4 mg 02/28/16 20:56 Zofran Injection IVPB Q8H PRN NAUSEA ASSESSMENT/PLAN: improving suggest repeat CT scan a/p w/ oral contrast; d/c IV fluids continue antibiotics Jameel Garcia MD FACS Visit type - Case Type Case Type: ED Admission - New patient This patient is new to me today: No - Critical Care Critical Care patient: No
[2016-03-02 14:02] LABS: C-REACTIVE PROTEIN 12.7 MG/DL (0.00-0.3)
--- NOTE | 2016-03-02 21:49 | PN ---
Progress Note, Physician History of Present Illness: No new complaints - Current Medication List Current Medications: Active Medications Acetaminophen (Tylenol Oral Solution -) 650 mg PO Q4H PRN PRN Reason: FEVER OR PAIN Last Admin: 02/29/16 21:41 Dose: 650 mg Enoxaparin Sodium (Lovenox -) 40 mg SQ DAILY RONY Last Admin: 03/02/16 09:35 Dose: Not Given Piperacillin Sod/Tazobactam Sod (Zosyn 4.5gm Ivpb (Pre-Docked)) 100 mls @ 200 mls/hr IVPB Q8H-IV RONY Last Admin: 03/02/16 17:53 Dose: 200 mls/hr Metronidazole (Flagyl 500mg Premixed Ivpb -) 100 mls @ 100 mls/hr IVPB Q6H-IV RONY Last Admin: 03/02/16 14:43 Dose: 100 mls/hr Ondansetron HCl (Zofran Injection) 4 mg IVPB Q8H PRN PRN Reason: NAUSEA - Objective Vital Signs: Vital Signs Temperature 98.7 F 03/02/16 20:46 Pulse Rate 75 03/02/16 20:46 Respiratory Rate 18 03/02/16 20:46 Blood Pressure 106/56 03/02/16 20:46 O2 Sat by Pulse Oximetry (%) 98 03/02/16 20:46 Constitutional: Yes: Well Nourished Neck: Yes: Supple Cardiovascular: Yes: WNL, Regular Rate and Rhythm Respiratory: Yes: WNL, Regular, CTA Bilaterally Gastrointestinal: Yes: WNL, Normal Bowel Sounds, Soft Labs: CBC, BMP 03/02/16 06:25 03/02/16 06:25 Problem List - Problems (1) Diverticulitis large intestine w/o perforation or abscess w/o bleeding Assessment/Plan: Acute diverticulitis w/ phlegmon Cont IVF Pt is now on IV zosyn/levaquin Check ct scan abd/pelvis Follow labs As per GI/surgery Code(s): K57.32 - DVTRCLI OF LG INT W/O PERFORATION OR ABSCESS W/O BLEEDING
[2016-03-03] MEDS: PIPERACILLIN/TAZOB 4.5 GM 100 ML IVPB SCH ×2 (01:44→14:00)
[2016-03-03] MEDS: METRONIDAZOLE 500 MG PREMIXED 100 ML IVPB SCH ×4 (02:43→21:24)
--- NOTE | 2016-03-03 10:13 | PN ---
Progress Note (short form) - Note Progress Note: ID Paty metronidazole continues He feels great NO pain Selected Entries 03/03/16 06:00 Temperature 98.2 F Pulse Rate 69 Respiratory 18 Rate Blood Pressure 93/51 ABd soft nontender Microbiology 02/28/16 10:14 Blood - Peripheral Venous Blood Culture - Preliminary NO GROWTH OBTAINED AFTER 72 HOURS, INCUBATION TO CONTINUE FOR 2 DAYS. 02/28/16 10:14 Blood - Peripheral Venous Blood Culture - Preliminary NO GROWTH OBTAINED AFTER 72 HOURS, INCUBATION TO CONTINUE FOR 2 DAYS. Laboratory Tests 03/02/16 03/02/16 06:25 06:25 WBC 7.1 RBC 4.03 Plt Count 227 BUN 6 L Creatinine 0.[address] report seen and reviewed with surgery Plan Advance to reg diet with plan as outlined Iva SPAIN Problem List - Problems (1) Acute diverticulitis Code(s): K57.92 - DVTRCLI OF INTEST, PART UNSP, W/O PERF OR ABSCESS W/O BLEED (2) Diverticulitis large intestine w/o perforation or abscess w/o bleeding Code(s): K57.32 - DVTRCLI OF LG INT W/O PERFORATION OR ABSCESS W/O BLEEDING
--- NOTE | 2016-03-03 10:23 | PN ---
Physical Exam: SUBJECTIVE: Patient seen and examined; tolerating liquids; wants more food. OBJECTIVE: Vital Signs Temperature 98.2 F 03/03/16 06:00 Pulse Rate 69 03/03/16 06:00 Respiratory Rate 18 03/03/16 06:00 Blood Pressure 93/51 03/03/16 06:00 O2 Sat by Pulse Oximetry (%) 98 03/02/16 20:46 GENERAL: The patient is awake, alert, and fully oriented, in no acute distress. ABDOMEN: Soft, nontender, nondistended, normoactive bowel sounds, no guarding, no rebound, no hepatosplenomegaly, no masses. PSYCH: Normal mood, normal affect. SKIN: Warm, dry, normal turgor, no rashes or lesions noted Laboratory Results - last 24 hr 03/02/16 03/02/16 06:25 13:35 C-Reactive Protein 12.7 H D Cancelled Active Medications Generic Name Dose Route Start Last Admin Trade Name Freq PRN Reason Stop Dose Admin Acetaminophen 650 mg 02/29/16 12:58 02/29/16 21:41 Tylenol Oral Solution - PO 650 mg Q4H PRN Administration FEVER OR PAIN Enoxaparin Sodium 40 mg 02/29/16 10:00 03/02/16 09:35 Lovenox - SQ Not Given DAILY RONY Piperacillin Sod/Tazobactam Sod 100 mls @ 200 mls/hr 02/29/16 10:00 03/03/16 01 :44 Zosyn 4.5gm Ivpb (Pre-Docked) IVPB 200 mls/hr Q8H-IV RONY Administration Metronidazole 100 mls @ 100 mls/hr 03/01/16 09:00 03/03/16 02:43 Flagyl 500mg Premixed Ivpb - IVPB 100 mls/hr Q6H-IV RONY Administration Ondansetron HCl 4 mg 02/28/16 20:56 Zofran Injection IVPB Q8H PRN NAUSEA ASSESSMENT/PLAN: clinically improved; f/u CT scan findings reviewed; they do not correlate w/ the clinical picture; will continue IVAB's and advance diet as tolerated and then transition to PO antibiotics; he states he cannot stay here longer than 7 days; will then repeat CT scan a/p as an outpatient Problem List - Problems (1) Diverticulitis large intestine w/o perforation or abscess w/o bleeding Code(s): K57.32 - DVTRCLI OF LG INT W/O PERFORATION OR ABSCESS W/O BLEEDING Visit type - Case Type Case Type: ED Admission - Emergency Emergency Visit: Yes ED Registration Date: 02/28/16 Care time: The patient presented to the Emergency Department on the above date and was hospitalized for further evaluation of their emergent condition. - New patient This patient is new to me today: No Date on this admission: 02/28/16 - Critical Care Critical Care patient: No
--- NOTE | 2016-03-03 11:10 | PN ---
Physical Exam: SUBJECTIVE: Patient seen and examined. He has no complaints. He wants to eat. OBJECTIVE: Vital Signs Period Temp Pulse Resp BP Sys/Hernandez Pulse Ox Last 24 Hr 97.9 F-98.7 F 69-77 18-18 90-106/51-65 98 GENERAL: The patient is awake, alert, and fully oriented, in no acute distress. NECK: Trachea midline, full range of motion, supple. LUNGS: Breath sounds equal, clear to auscultation bilaterally, no wheezes, no crackles, no accessory muscle use. HEART: Regular rate and rhythm, S1, S2 without murmur, rub or gallop. ABDOMEN: Soft, nontender, nondistended, normoactive bowel sounds, no guarding, no rebound, no hepatosplenomegaly, no masses. EXTREMITIES: 2+ pulses, warm, well-perfused, no edema. Laboratory Results - last 24 hr 03/02/16 03/02/16 06:25 13:35 C-Reactive Protein 12.7 H D Cancelled Active Medications Generic Name Dose Route Start Last Admin Trade Name Freq PRN Reason Stop Dose Admin Acetaminophen 650 mg 02/29/16 12:58 02/29/16 21:41 Tylenol Oral Solution - PO 650 mg Q4H PRN Administration FEVER OR PAIN Enoxaparin Sodium 40 mg 02/29/16 10:00 03/02/16 09:35 Lovenox - SQ Not Given DAILY RONY Piperacillin Sod/Tazobactam Sod 100 mls @ 200 mls/hr 02/29/16 10:00 03/03/16 01 :44 Zosyn 4.5gm Ivpb (Pre-Docked) IVPB 200 mls/hr Q8H-IV RONY Administration Metronidazole 100 mls @ 100 mls/hr 03/01/16 09:00 03/03/16 02:43 Flagyl 500mg Premixed Ivpb - IVPB 100 mls/hr Q6H-IV RONY Administration Ondansetron HCl 4 mg 02/28/16 20:56 Zofran Injection IVPB Q8H PRN NAUSEA ASSESSMENT/PLAN: 1. Acute diverticulitis - Clinically improving - Follow-up CT 03/02 showed phlegmonous changes about mid sigmoid, retrovesical fluid collection suspicious for abscess - Continue Zosyn, Flagyl - Advance diet - If he continues to do well, expect discharge tomorrow on oral antibiotics and outpatient follow-up CT Visit type - Emergency Visit Emergency Visit: Yes ED Registration Date: 02/28/16 Care time: The patient presented to the Emergency Department on the above date and was hospitalized for further evaluation of their emergent condition. - New Patient This patient is new to me today: Yes Date on this admission: 03/03/16 - Critical Care Critical Care patient: No - Discharge Referral Referred to [facility] Med [facility] No
--- NOTE | 2016-03-03 13:32 | PN ---
GI Progress Note Subjective: no abdominal pain,tolerating diet - Objective Vital Signs: Vital Signs Temperature 98.2 F 03/03/16 06:00 Pulse Rate 69 03/03/16 06:00 Respiratory Rate 18 03/03/16 06:00 Blood Pressure 93/51 03/03/16 06:00 O2 Sat by Pulse Oximetry (%) 98 03/02/16 20:46 Constitutional: Well Nourished Eyes: Yes: Conjunctiva Clear HENT: Yes: Atraumatic Neck: Yes: Supple Cardiovascular: Yes: Regular Rate and Rhythm Respiratory: Yes: CTA Bilaterally ...Palpate: Yes: Soft. No: Firm/Rigid, Guarding, Hepatomegaly, Mass, Pulsatile Mass, Splenomegaly, Tenderness Labs: CBC, BMP 03/02/16 06:25 03/02/16 06:25 Problem List - Problems (1) Diverticulitis large intestine w/o perforation or abscess w/o bleeding Assessment/Plan: --stable R> low residue diet made aware to ff-up colonoscopy in 6 weeks Code(s): K57.32 - DVTRCLI OF LG INT W/O PERFORATION OR ABSCESS W/O BLEEDING
[2016-03-03] MEDS: ENOXAPARIN NA (PORCINE) 40 MG/0.4 ML DISP.SYRIN SQ SCH (18:53)
[2016-03-04] MEDS: PIPERACILLIN/TAZOB 4.5 GM 100 ML IVPB SCH ×3 (01:38→10:06)
[2016-03-04] MEDS: METRONIDAZOLE 500 MG PREMIXED 100 ML IVPB SCH ×2 (03:05→09:09)
[2016-03-04] MEDS: ENOXAPARIN NA (PORCINE) 40 MG/0.4 ML DISP.SYRIN SQ SCH (09:09)
--- NOTE | 2016-03-04 10:03 | PN ---
Progress Note, Physician Chief Complaint: ID Doing well Wants to lave today though we spoke about another 48 hours of IV therapy - Current Medication List Current Medications: Active Medications Acetaminophen (Tylenol Oral Solution -) 650 mg PO Q4H PRN PRN Reason: FEVER OR PAIN Last Admin: 02/29/16 21:41 Dose: 650 mg Enoxaparin Sodium (Lovenox -) 40 mg SQ DAILY RONY Last Admin: 03/04/16 09:09 Dose: Not Given Piperacillin Sod/Tazobactam Sod (Zosyn 4.5gm Ivpb (Pre-Docked)) 100 mls @ 200 mls/hr IVPB Q8H-IV RONY Last Admin: 03/04/16 09:09 Dose: 200 mls/hr Metronidazole (Flagyl 500mg Premixed Ivpb -) 100 mls @ 100 mls/hr IVPB Q6H-IV RONY Last Admin: 03/04/16 09:09 Dose: 100 mls/hr Ondansetron HCl (Zofran Injection) 4 mg IVPB Q8H PRN PRN Reason: NAUSEA - Objective Vital Signs: Vital Signs Temperature 97.5 F L 03/04/16 05:45 Pulse Rate 66 03/04/16 05:45 Respiratory Rate 19 03/04/16 05:45 Blood Pressure 102/64 03/04/16 05:45 O2 Sat by Pulse Oximetry (%) 99 03/03/16 21:00 Constitutional: Yes: Well Nourished, No Distress Neck: Yes: WNL, Supple Cardiovascular: Yes: S1, S2 Respiratory: Yes: WNL, Regular, CTA Bilaterally Gastrointestinal: Yes: WNL, Normal Bowel Sounds, Soft Labs: CBC, BMP 03/02/16 06:25 03/02/16 06:25 Problem List - Problems (1) Acute diverticulitis Code(s): K57.92 - DVTRCLI OF INTEST, PART UNSP, W/O PERF OR ABSCESS W/O BLEED (2) Diverticulitis large intestine w/o perforation or abscess w/o bleeding Code(s): K57.32 - DVTRCLI OF LG INT W/O PERFORATION OR ABSCESS W/O BLEEDING Assessment/Plan Laboratory Tests 03/02/16 06:25 WBC 7.1 Hgb 13.0 Plt Count 227 Assessment Acute diverticulitis better Plan Stop IV fluids Augmentin 875 mg bid 10 days Out pt follow up with a GEENA Enrique MD
--- NOTE | 2016-03-04 10:45 | PN ---
Progress Note (short form) - Note Progress Note: General Surgery- Dr. Garcia Patient seen and examined. Patient states he is feeling better, having no pain and is ready to go home. Patient is tolerating his diet, had a nonbloody BM, and was switched to PO abx per ID. Patient has no complaints. Last Vital Signs Temp Pulse Resp BP Pulse Ox 97.5 F L 66 19 102/64 99 03/04/16 05:45 03/04/16 05:45 03/04/16 05:45 03/04/16 05:45 03/03/16 21:00 PEL: Gen: NAD, resting comfortably Abd: soft, nondistended, nontender Problem List - Problems (1) Diverticulitis large intestine w/o perforation or abscess w/o bleeding Assessment/Plan: Patient clinically improving, no pain Patient switched to PO abx per ID, to be discharged home Follow-up with Dr. Garcia within two weeks Patient discussed with Dr. Garcia Code(s): K57.32 - DVTRCLI OF LG INT W/O PERFORATION OR ABSCESS W/O BLEEDING
[2016-03-04 15:02] VITALS: BP 103/64; PULSE 73; TEMP 98.4
[2016-03-04] MEDS ORDERED: AMOX TR/POT CLAV 875MG/125MG TABLETS (FP) PO SCH (17:30)
== END 2016-03-04 14:47 | disposition home or self-care (01) | DRG 244 ==
LOC: JER 09:34 → JERBED 14:42 → EDBD 14:42 → J7W 18:55
PROVIDERS: ADMIT Internal Medicine; ATTEND Internal Medicine
DX: K57.32 Diverticulitis of large intestine without perforation or abscess without bleeding (principal); D72.829 Elevated white blood cell count, unspecified; F17.210 Nicotine dependence, cigarettes, uncomplicated
CPT/HCPCS: 36415; 74177-TC; 80048; 80053; 81003; 81015; 83605; 83690; 85025; 86140; 87040; 93005; 93010; 99285-25

== ENCOUNTER 2019-08-03 11:07 | Emergency (ER) | payer OTHER ==
[2019-08-03 11:16] VITALS: TEMP 98.5; BMI 24.2
[2019-08-03] MEDS ORDERED: AMPICILLIN NA/SULBACTAM NA 3 GM in SODIUM CHLORIDE 100 ML IVPB ONE (11:42)
[2019-08-03 12:14] LABS: BASO % 0.5 % (0-2.0); EOS % 2.5 % (0-4.5); HEMATOCRIT 41.8 % (35.4-49); HEMOGLOBIN 14.1 GM/dL (11.7-16.9); LYMPH % 31.9 % (8-40); MCH 32.1 pg (25.7-33.7); MCHC 33.8 g/dl (32.0-35.9); MEAN CELL VOLUME 95.2 fl (80-96); MONO % 7.3 % (3.8-10.2); NEUT % 57.8 % (42.8-82.8); PLATELET COUNT 238 K/MM3 (134-434); RBC 4.39 M/mm3 (4.00-5.60); RDW 12.9 % (11.9-15.9); WHITE BLOOD COUNT 6.9 K/mm3 (4.0-10.0)
[2019-08-03 12:51] LABS: BILIRUBIN,TOTAL 0.4 mg/dL (0.2-1); BLOOD UREA NITROGEN 10.5 mg/dL (7-18); CREATININE 0.7 mg/dL (0.55-1.3); POTASSIUM 4.2 mmol/L (3.5-5.1); TOT PROT 7.2 g/dl (6.4-8.2)
[2019-08-03 13:00] LABS: CALCIUM 6.9 mg/dL (8.5-10.1)
[2019-08-03 14:56] LABS: ALBUMIN 3.8 g/dl (3.4-5.0); BILIRUBIN,TOTAL 0.5 mg/dL (0.2-1); BLOOD UREA NITROGEN 9.9 mg/dL (7-18); CALCIUM 8.9 mg/dL (8.5-10.1); CREATININE 0.7 mg/dL (0.55-1.3); POTASSIUM 4.1 mmol/L (3.5-5.1); TOT PROT 7.1 g/dl (6.4-8.2)
[2019-08-03 15:20] VITALS: BP 140/95; PULSE 78
== END 2019-08-03 15:26 | disposition home or self-care (01) ==
LOC: JER 11:07
DX: L03.012 Cellulitis of left finger (principal); W55.01XA Bitten by cat, initial encounter
CPT/HCPCS: 36415; 73140-TC-LT-FY; 80053; 85025; 93005; 93010; 99284-25